=== PATIENT | female | born 1960 | race Caucasian/White ===

== ENCOUNTER → 2021-05-24 | Day surgery (SDC) | payer OTHER ==
[~2021-05-24] VITALS: Ht 162.6 cm; Wt 82.2 kg
[~2021-05-24] MED LIST: ASPIRIN EC81 MG PO; BREZTRI AEROS10.7 GM INH; BUSPIRONE HCL15 MG PO; CITALOPRAM 40MG40 MG PO; COZAAR50 MG PO; DUONEB 2.5-0.5M1 AMP INH; HCTZ25 MG PO; K-TAB ER10 MEQ PO; LIPITOR20 MG PO; MEDROL 4MG DOSEP4 MG PO; NORVASC5 MG PO; PRILOSEC20 MG PO; TAMIFLU 75MG CA75 MG PO; VENTOLIN HFA IN18 GM INH
== END | disposition home or self-care (01) ==
LOC: FAS 06:28
DX: Z12.11 Encounter for screening for malignant neoplasm of colon (principal); K57.30 Diverticulosis of large intestine without perforation or abscess without bleeding; I10 Essential (primary) hypertension; F17.200 Nicotine dependence, unspecified, uncomplicated; E78.5 Hyperlipidemia, unspecified; J44.9 Chronic obstructive pulmonary disease, unspecified; G47.30 Sleep apnea, unspecified; E78.00 Pure hypercholesterolemia, unspecified; F32.A Depression, unspecified; G89.29 Other chronic pain; M54.9 Dorsalgia, unspecified; M85.80 Other specified disorders of bone density and structure, unspecified site; Z79.899 Other long term (current) drug therapy; Z80.9 Family history of malignant neoplasm, unspecified; Z72.89 Other problems related to lifestyle
CPT/HCPCS: J2704; J7120